=== PATIENT | female | born 1975 | race Caucasian/White ===

== ENCOUNTER 2018-02-01 10:19 | Emergency (ER) | END 2018-02-01 12:19 | disposition home or self-care (01) ==

== ENCOUNTER 2018-05-29 09:17 | Emergency (ER) | END 2018-05-29 10:10 | disposition home or self-care (01) ==

== ENCOUNTER 2018-09-03 09:03 | Emergency (ER) | payer MEDICAID ==
[~2018-09-03] VITALS: Ht 162.6 cm; Wt 59.0 kg
[~2018-09-03 09:03] MED LIST: ALBU8.5H5 IH; ALBU8.5H5 INH; ALBU8.5H8 INH; BECL8.7A5 INH; CEPH500C PO; IBUP-1542 PO; KETO120S3 TOP; METH500T PO; PRED20TA PO; TRAM50TA2 PO
[2018-09-03 09:05] VITALS: BP 127/77; PULSE 75; RESP 19; Ht 162.6 cm; Wt 59.0 kg
[2018-09-03] MEDS ORDERED: KETOROLAC 30 MG INJ IM STA (10:14)
[2018-09-03] MEDS ORDERED: CYCLOBENZAPRINE 10 MG TAB PO ONE (10:30)
[2018-09-03] MEDS ORDERED: DEXAMETHASONE 10 MG/ML 1 ML INJ IM ONE (10:30)
[2018-09-03] MEDS ORDERED: HYDROCODONE/APAP (5/325) TAB PO ONE (12:30)
[2018-09-03] MEDS ORDERED: IBUP-1542 PO (12:36)
[2018-09-03] MEDS ORDERED: CYCL10TA7 PO (12:36)
[2018-09-03] MEDS ORDERED: HYDR-4011 PO (12:36)
--- NOTE | 2018-09-03 20:26 | ERD ---
ER Documentation Chief Complaint Chief Complaint shoulder and left arm pain/tingling HPI 43-year-old presents for left shoulder and arm pain and tingling times 4 days. She states that she has had this issue chronically. She has history of spine fusion. States that she took tramadol at home and Motrin without relief. She also took Robaxin at home. She denies any weakness in her left arm and shoulder. Pain is 8 out of 10. Denies chest pain, shortness of breath, no pain, nausea, vomiting. ROS All systems reviewed and are negative except as per history of present illness. Medications Home Meds Active Scripts Ibuprofen* (Motrin*) 600 Mg Tab, 600 MG PO Q6H PRN for PAIN AND OR ELEVATED TEMP, #30 TAB Prov:PATRICK KHANNA DO 09/03/18 Hydrocodone/Acetaminophen ([place] 5-325 Tablet) 1 Each Tablet, 1 TAB PO Q6H PRN for PAIN, #10 TAB Prov:PATRICK KHANNA DO 09/03/18 Cyclobenzaprine Hcl* (Cyclobenzaprine Hcl*) 10 Mg Tablet, 10 MG PO TID PRN for PAIN, #30 TAB Prov:PATRICK KHANNA DO 09/03/18 Albuterol Sulfate* (Proair HFA*) 8.5 Gm Hfa.aer.ad, 2 PUFF INH Q6, #1 INHALER Prov:MICHAEL RIOS PA-C 02/01/18 Ibuprofen* (Motrin*) 600 Mg Tab, 600 MG PO Q6, #30 TAB Prov:MICHAEL RIOS PA-C 02/01/18 Tramadol HCl (Tramadol HCl) 50 Mg Tablet, 50 MG PO Q4 PRN for PAIN, #15 TAB Prov:MICHAEL RIOS PA-C 02/01/18 Ketoconazole* (Ketoconazole*) 2% - 120 Ml Shampoo, 1 APPLIC TOP DAILY, #1 EA WASH HAIR/SCALP AND RINSE OFF for 2 weeks Prov:DYLAN HOLM NP 05/26/16 Methocarbamol* (Robaxin*) 500 Mg Tab, 500 MG PO Q6, #20 TAB Prov:TRACY NIELSEN MD 10/15/15 Tramadol HCl (Tramadol HCl) 50 Mg Tablet, 50 MG PO Q4 PRN for PAIN, #20 TAB Prov:TRACY NIELSEN MD 10/15/15 Prednisone* (Prednisone*) 20 Mg Tab, 40 MG PO DAILY for 5 Days, TAB Prov:MARIMAR SPENCE 09/25/15 Prednisone* (Prednisone*) 20 Mg Tab, 40 MG PO DAILY for 4 Days, TAB Prov:LAUREEN BELLE PA-C 08/22/15 Albuterol Sulfate* (Albuterol Sulfate* HFA) 8.5 Gm Hfa.aer.ad, 1-2 PUFF INH Q4 PRN for SHORTNESS OF BREATH, #1 EA Prov:LAUREEN BELLE PA-C 08/22/15 Cephalexin* (Cephalexin*) 500 Mg Capsule, 500 MG PO TID, #7 CAP Prov:JASON ROSE MD 07/15/15 Albuterol Sulfate* (Albuterol Sulfate* HFA) 8.5 Gm Hfa.aer.ad, 2 PUFF IH Q4H PRN for WHEEZING AND SOB, #1 EA Prov:JASON ROSE MD 07/15/15 Prednisone* (Prednisone*) 20 Mg Tab, 20 MG PO DAILY, #4 TAB Prov:JASON ROSE MD 07/15/15 Reported Medications Beclomethasone Dip* (Qvar 80*) 7.3 Gm Inha, 2 PUFF INH BID, INH 08/19/14 Albuterol Sulfate* (Proair HFA*) 8.5 Gm Hfa.aer.ad, 2 PUFF INH Q4H PRN for WHEEZING AND SOB, INH 08/19/14 Allergies Allergies: Coded Allergies: erythromycin base (Verified Allergy, Mild, 10/15/15) PMhx/Soc History of Surgery: Yes (Back fusion) Anesthesia Reaction: No Hx Neurological Disorder: No Hx Respiratory Disorders: Yes (Asthma) Hx Cardiac Disorders: No Hx Psychiatric Problems: No Hx Miscellaneous Medical Probl: No Hx Alcohol Use: Yes (occasional) Hx Substance Use: No Hx Tobacco Use: Yes Smoking Status: Current every day smoker Physical Exam Vitals Vital Signs Date Temp Pulse Resp B/P (MAP) Pulse Ox O2 O2 Flow FiO2 Time Delivery Rate 09/03/18 97.6 75 19 127/77 100 09:05 (94) Physical Exam Const: No acute distress Neck: Full range of motion. No meningismus. Resp: Clear to auscultation bilaterally Cardio: Regular rate and rhythm, no murmurs, bilateral radial pulses intact Abd: Soft, non tender, non distended. Normal bowel sounds Skin: No petechiae or rashes Back: No midline or flank tenderness Ext: There is tenderness palpation of the left shoulder area, left arm muscle strength 5 out of 5 Neur: Awake and alert, bilateral upper extremity sensation intact Psych: Normal Mood and Affect Results 24 hrs Laboratory Tests Test 09/03/18 10:34 POC Beta HCG, Qualitative NEGATIVE Current Medications Medications Dose Sig/Mariano Start Time Status Last (Trade) Ordered Route PRN Stop Time Admin Dose Reason Admin 10 mg ONCE ONCE 09/03/18 DC 09/03/18 Dexamethasone IM 10:30 10:22 (Decadron) 09/03/18 10:31 Ketorolac 30 mg ONCE STAT 09/03/18 DC 09/03/18 Tromethamine IM 10:14 10:34 (Toradol) 09/03/18 10:16 10 mg ONCE ONCE 09/03/18 DC 09/03/18 Cyclobenzapri PO 10:30 10:22 ne HCl 09/03/18 10:31 (Flexeril) 1 tab ONCE ONCE 09/03/18 DC 09/03/18 Acetaminophen PO 12:30 12:23 / 09/03/18 12:31 Hydrocodone Bitart (L[place]ard (5/325)) Procedures/MDM Medical Decision Making: Differential diagnosis includes but not limited to muscle strain, ligamentous sprain, fracture, dislocation. Patient appeared well on physical exam. Patient is neurovascularly intact. ED course: Patient was given Toradol, Flexeril, Decadron. Initially she still had the numbness and tingling, patient was subsequently given Ledyard with relief of symptoms. Prescription(s): Patient given prescription for Ledyard short course low-dose, Flexeril, Motrin. Patient advised to follow up with PCP in 1-2 days. Patient advised to return to ED for new or worsening symptoms. Patient stable on discharge from the ED. The patient has been prescribed L[place] during this encounter. The patient has been warned about the use of narcotics. The patient should not drive or operate heavy machinery while taking this medication. The patient was also warned about the addictive properties of narcotic medications. Narcan prescription was NOT provided given the following criteria 1. No more than 5 tablets of L[place]ard 10 mg or 10 tablets of L[place]ard 5 mg were prescribed. 2. Concomitant opiate and benzodiazepine prescriptions were not provided. 3. There is no obvious evidence of prior history of opiate abuse or overdose. Disclaimer: Inadvertent spelling and grammatical errors are likely due to EHR/dictation software use and do not reflect on the overall quality of patient care. Also, please note that the electronic time recorded on this note does not necessarily reflect the actual time of the patient encounter. Departure Diagnosis: Primary Impression: Shoulder pain Condition: Fair Patient Instructions: Shoulder Problems Referrals: [facility] YOU HAVE RECEIVED A MEDICAL SCREENING EXAM AND THE RESULTS INDICATE THAT YOU DO NOT HAVE A CONDITION THAT REQUIRES URGENT TREATMENT IN THE EMERGENCY DEPARTMENT. FURTHER EVALUATION AND TREATMENT OF YOUR CONDITION CAN WAIT UNTIL YOU ARE SEEN IN YOUR DOCTORS OFFICE WITHIN THE NEXT 1-2 DAYS. IT IS YOUR RESPONSIBILITY TO M CAROL AN APPOINTMENT FOR FOLOW-UP CARE. IF YOU HAVE A PRIMARY DOCTOR --you should call your primary doctor and schedule an appointment IF YOU DO NOT HAVE A PRIMARY DOCTOR YOU CAN CALL OUR PHYSICIAN REFERRAL HOTLINE AT IF YOU CAN NOT AFFORD TO SEE A PHYSICIAN YOU CAN CHOSE FROM THE FOLLOWING [facility] [address] [facility]. [facility] [address] [facility] [facility] [address] [facility]. [facility] [address] [facility] [facility] [address] [facility] [facility]. [address] Additional Instructions: Call your primary care doctor TOMORROW for an appointment during the next 1-2 days.See the doctor sooner or return here if your condition worsens before your appointment time. PATRICK KHANNA DO Sep 03, 2018 20:26
== END 2018-09-03 12:47 | disposition home or self-care (01) ==
LOC: FTE 09:03
DX: M25.512 Pain in left shoulder (principal); J45.909 Unspecified asthma, uncomplicated; F17.210 Nicotine dependence, cigarettes, uncomplicated
CPT/HCPCS: 81025; 96372; J1100; J1885; Z7502; Z7610

== ENCOUNTER 2018-09-04 11:27 | Emergency (ER) | payer MEDICAID ==
[~2018-09-04] VITALS: Wt 62.0 kg
[~2018-09-04 11:27] MED LIST changes: +CYCL10TA7 PO; +HYDR-4011 PO
[2018-09-04 11:34] VITALS: BP 163/84; PULSE 82; RESP 16
--- NOTE | 2018-09-04 13:08 | ERD ---
ER Documentation Chief Complaint Chief Complaint LEFT ARM NUMBNESS, NECK PAIN, CHRONIC NECK PROBLEM HPI This 43-year-old female presents with pain and numbness in her left arm radiating from her left trapezius down her left hand. She describes area of pain in her index, middle and ring finger. She has no weakness. She has no history of recent injury. She has no fevers, additional symptoms. She has a history of cervical fusion approximately 15 years ago at [facility].. She was seen here yesterday and is not having relief from [place] prescribed. ROS All systems reviewed and are negative except as per history of present illness. Medications Home Meds Active Scripts Ibuprofen* (Motrin*) 600 Mg Tab, 600 MG PO Q6H PRN for PAIN AND OR ELEVATED TEMP, #30 TAB Prov:PATRICK KHANNA DO 09/03/18 Hydrocodone/Acetaminophen ([place] 5-325 Tablet) 1 Each Tablet, 1 TAB PO Q6H PRN for PAIN, #10 TAB Prov:PATRICK KHANNA DO 09/03/18 Cyclobenzaprine Hcl* (Cyclobenzaprine Hcl*) 10 Mg Tablet, 10 MG PO TID PRN for PAIN, #30 TAB Prov:PATRICK KHANNA DO 09/03/18 Albuterol Sulfate* (Proair HFA*) 8.5 Gm Hfa.aer.ad, 2 PUFF INH Q6, #1 INHALER Prov:MICHAEL RIOS PA-C 02/01/18 Ibuprofen* (Motrin*) 600 Mg Tab, 600 MG PO Q6, #30 TAB Prov:MICHAEL RIOS PA-C 02/01/18 Tramadol HCl (Tramadol HCl) 50 Mg Tablet, 50 MG PO Q4 PRN for PAIN, #15 TAB Prov:MICHAEL RIOS PA-C 02/01/18 Ketoconazole* (Ketoconazole*) 2% - 120 Ml Shampoo, 1 APPLIC TOP DAILY, #1 EA WASH HAIR/SCALP AND RINSE OFF for 2 weeks Prov:DYLAN HOLM NP 05/26/16 Methocarbamol* (Robaxin*) 500 Mg Tab, 500 MG PO Q6, #20 TAB Prov:TRACY NIELSEN MD 10/15/15 Tramadol HCl (Tramadol HCl) 50 Mg Tablet, 50 MG PO Q4 PRN for PAIN, #20 TAB Prov:TRACY NIELSEN MD 10/15/15 Prednisone* (Prednisone*) 20 Mg Tab, 40 MG PO DAILY for 5 Days, TAB Prov:MARIMAR SPENCE 09/25/15 Prednisone* (Prednisone*) 20 Mg Tab, 40 MG PO DAILY for 4 Days, TAB Prov:LAUREEN BELLE PA-C 08/22/15 Albuterol Sulfate* (Albuterol Sulfate* HFA) 8.5 Gm Hfa.aer.ad, 1-2 PUFF INH Q4 PRN for SHORTNESS OF BREATH, #1 EA Prov:LAUREEN BELLE PA-C 08/22/15 Cephalexin* (Cephalexin*) 500 Mg Capsule, 500 MG PO TID, #7 CAP Prov:JASON ROSE MD 07/15/15 Albuterol Sulfate* (Albuterol Sulfate* HFA) 8.5 Gm Hfa.aer.ad, 2 PUFF IH Q4H PRN for WHEEZING AND SOB, #1 EA Prov:JASON ROSE MD 07/15/15 Prednisone* (Prednisone*) 20 Mg Tab, 20 MG PO DAILY, #4 TAB Prov:JASON ROSE MD 07/15/15 Reported Medications Beclomethasone Dip* (Qvar 80*) 7.3 Gm Inha, 2 PUFF INH BID, INH 08/19/14 Albuterol Sulfate* (Proair HFA*) 8.5 Gm Hfa.aer.ad, 2 PUFF INH Q4H PRN for WHEEZING AND SOB, INH 08/19/14 Allergies Allergies: Coded Allergies: erythromycin base (Verified Allergy, Mild, 10/15/15) PMhx/Soc History of Surgery: Yes (Back fusion) Anesthesia Reaction: No Hx Neurological Disorder: No Hx Respiratory Disorders: Yes (Asthma) Hx Cardiac Disorders: No Hx Psychiatric Problems: No Hx Miscellaneous Medical Probl: No Hx Alcohol Use: Yes (occasional) Hx Substance Use: No Hx Tobacco Use: Yes (cig ) Smoking Status: Current every day smoker FmHx Family History: No diabetes, No coronary disease, No other Physical Exam Vitals Vital Signs Date Temp Pulse Resp B/P (MAP) Pulse Ox O2 O2 Flow FiO2 Time Delivery Rate 09/04/18 97.6 82 16 163/84 100 11:34 (110) Physical Exam Const: No acute distress Head: Atraumatic Eyes: Normal Conjunctiva ENT: Normal External Ears, Nose and Mouth. Neck: Full range of motion. No meningismus. Tenderness mildly in the cervical paraspinous area and left trapezius and C5-C6 area. No midline tenderness or deformities. Resp: Clear to auscultation bilaterally Cardio: Regular rate and rhythm, no murmurs Abd: Soft, non tender, non distended. Normal bowel sounds Skin: No petechiae or rashes Back: No midline or flank tenderness Ext: No cyanosis, or edema. Pulses 2+ distally. No restricted range of mo tion weakness. Neur: Awake and alert Psych: Normal Mood and Affect Procedures/MDM CT cervical spine shows multilevel mild foraminal narrowing a and C5-C6 and C6- C7 corresponding with location of patient's symptoms. C7-T1 shows no si gnificant abnormalities. Stable fusion at C5-C6. No additional acute findings noted. Results will be given to patient's. Patient was advised on recommendations for evaluation by neurosurgery or orthopedist for further evaluation treatment of what appears to be recurrence of cervical radicular symptoms with a known history. She was advised he may benefit from physical therapy and further evaluation study. She has no signs or symptoms to suggest epidural abscess, significant spinal cord stenosis, additional emergent causes of presenting complaints. Patient is advised to continue medication as prescribed and follow- up with primary care or return to ER for new or worsening symptoms or complications as directed. The patient was stable with no new complaints during the ER course. Clinically, there is no current evidence to suggest meningitis, sepsis, acute abdomen, pneumonia, stroke, acute coronary syndrome, pulmonary embolism, aortic dissection or any other emergent condition appearing to require further evaluation or hospitalization. Patient counseled regarding my diagnostic impression and care plan. Prior to discharge all questions answered. Pt agrees with treatment plan and understands strict return precautions. Pt is instructed to follow up with primary care provider within 24-48 hours. Precautionary instructions provided including instructions to return to the ER if not improving or for any worsening or changing symptoms or concerns. Departure Diagnosis: Primary Impression: Pain of left arm Condition: Stable Patient Instructions: Radiculopathy, Cervical Referrals: [facility] Hours: Mon-Fri 9:00 AM - 5:00 PM Additional Instructions: Pain likely recurrence of disc disease or cervical radicular pain. Recommend see orthopedist or neurosurgery for further evaluation treatment. May benefit from specialty evaluation and physical therapy. May need authorization from primary doctor for specialist visit. TRACY NIELSEN MD Sep 04, 2018 13:08
== END 2018-09-04 13:17 | disposition home or self-care (01) ==
LOC: FTE 11:27
DX: M79.602 Pain in left arm (principal); J45.909 Unspecified asthma, uncomplicated; F17.210 Nicotine dependence, cigarettes, uncomplicated
CPT/HCPCS: 72125; Z7502

== ENCOUNTER 2019-03-19 14:40 | Emergency (ER) | payer MEDICAID, OTHER ==
[~2019-03-19] VITALS: Ht 162.6 cm; Wt 61.4 kg
[2019-03-19 14:43] VITALS: Ht 162.6 cm; Wt 61.4 kg
[2019-03-19] MEDS ORDERED: ALBUTEROL 0.5% (NEB) 2.5 MG/0.5 ML AMP INH STA (15:16)
[2019-03-19] MEDS ORDERED: IPRATROPIUM (NEB) 0.5 MG/2.5 ML AMP INH STA (15:16)
[2019-03-19] MEDS ORDERED: METHYLPREDNISOLONE 125 MG INJ IV STA (15:16)
[2019-03-19] MEDS ORDERED: MONT10TA24 ORAL (15:54)
--- NOTE | 2019-03-19 17:53 | ERD ---
ER Documentation Chief Complaint Chief Complaint COUGH WITH GREEN SPUTUM X 3 WEEKS. ASTHMA WITH INCREASING SOB. HPI Is a 43-year-old female with a past medical history of asthma who is presenting with concerns of an asthma exacerbation. The patient has had 3 to 4 weeks of progressive worsening shortness of breath and wheezing. Over the last 1 to 2 days, the patient has had a new productive cough with green sputum. The patient does not endorse fever or chills, but she does feel generally unwell. She does endorse chest tightness but no chest pain. She denies diaphoresis. She denies lightheadedness or dizziness. She has not had nausea or vomiting. The patient has had no headache or vision changes. The patient does not endorse neck or back pain. The patient denies lightheadedness or dizziness. The patient denies abdominal pain. The patient denies changes to bowel movements or urination. The patient has had no focal deficits. The patient has had no weakness or numbness or tingling to the face or extremities. ROS All systems reviewed and are negative except as per history of present illness. Medications Home Meds Reported Medications Montelukast Sodium* (Montelukast Sodium*) 10 Mg Tablet, 1 TAB ORAL DAILY 03/19/19 Discontinued Reported Medications Beclomethasone Dip* (Qvar 80*) 7.3 Gm Inha, 2 PUFF INH BID, INH 08/19/14 Albuterol Sulfate* (Proair HFA*) 8.5 Gm Hfa.aer.ad, 2 PUFF INH Q4H PRN for WHEEZING AND SOB, INH 08/19/14 Discontinued Scripts Ibuprofen* (Motrin*) 600 Mg Tab, 600 MG PO Q6H PRN for PAIN AND OR ELEVATED TEMP, #30 TAB Prov:PATRICK KHANNA DO 09/03/18 Hydrocodone/Acetaminophen (Union 5-325 Tablet) 1 Each Tablet, 1 TAB PO Q6H PRN for PAIN, #10 TAB Prov:PATRICK KHANNA DO 09/03/18 Cyclobenzaprine Hcl* (Cyclobenzaprine Hcl*) 10 Mg Tablet, 10 MG PO TID PRN for PAIN, #30 TAB Prov:PATRICK KHANNA DO 09/03/18 Albuterol Sulfate* (Proair HFA*) 8.5 Gm Hfa.aer.ad, 2 PUFF INH Q6, #1 INHALER Prov:MICHAEL RIOS PA-C 02/01/18 Ibuprofen* (Motrin*) 600 Mg Tab, 600 MG PO Q6, #30 TAB Prov:MICHAEL RIOSC 02/01/18 Tramadol HCl (Tramadol HCl) 50 Mg Tablet, 50 MG PO Q4 PRN for PAIN, #15 TAB Prov:MICHAEL RIOSC 02/01/18 Ketoconazole* (Ketoconazole*) 2% - 120 Ml Shampoo, 1 APPLIC TOP DAILY, #1 EA WASH HAIR/SCALP AND RINSE OFF for 2 weeks Prov:DYLAN HOLM NP 05/26/16 Methocarbamol* (Robaxin*) 500 Mg Tab, 500 MG PO Q6, #20 TAB Prov:TRACY NIELSEN MD 10/15/15 Tramadol HCl (Tramadol HCl) 50 Mg Tablet, 50 MG PO Q4 PRN for PAIN, #20 TAB Prov:TRACY NIELSEN MD 10/15/15 Prednisone* (Prednisone*) 20 Mg Tab, 40 MG PO DAILY for 5 Days, TAB Prov:MARIMAR SPENCE 09/25/15 Prednisone* (Prednisone*) 20 Mg Tab, 40 MG PO DAILY for 4 Days, TAB Prov:LAUREEN BELLE PA-C 08/22/15 Albuterol Sulfate* (Albuterol Sulfate* HFA) 8.5 Gm Hfa.aer.ad, 1-2 PUFF INH Q4 PRN for SHORTNESS OF BREATH, #1 EA Prov:LAUREEN BELLE PA-C 08/22/15 Cephalexin* (Cephalexin*) 500 Mg Capsule, 500 MG PO TID, #7 CAP Prov:JASON ROSE MD 07/15/15 Albuterol Sulfate* (Albuterol Sulfate* HFA) 8.5 Gm Hfa.aer.ad, 2 PUFF IH Q4H PRN for WHEEZING AND SOB, #1 EA Prov:JASON ROSE MD 07/15/15 Prednisone* (Prednisone*) 20 Mg Tab, 20 MG PO DAILY, #4 TAB Prov:JASON ROSE MD 07/15/15 Allergies Allergies: Coded Allergies: erythromycin base (Verified Allergy, Mild, 10/15/15) PMhx/Soc History of Surgery: Yes (Back fusion) Anesthesia Reaction: No Hx Neurological Disorder: No Hx Respiratory Disorders: Yes (Asthma) Hx Cardiac Disorders: No Hx Psychiatric Problems: No Hx Miscellaneous Medical Probl: No Hx Alcohol Use: Yes (occasional) Hx Substance Use: No Hx Tobacco Use: Yes (cig ) Smoking Status: Current every day smoker FmHx Family History: No diabetes Physical Exam Vitals Vital Signs Date Temp Pulse Resp B/P (MAP) Pulse Ox O2 O2 Flow FiO2 Time Delivery Rate 03/19/19 98.1 94 16 117/76 100 16:06 (90) 03/19/19 88 18 97 Nasal 2.0 15:50 Cannula 03/19/19 Nasal 2.0 15:17 Cannula 03/19/19 98.9 102 26 117/59 91 14:43 (78) Physical Exam Const: No acute distress Head: Atraumatic Eyes: Normal Conjunctiva ENT: Normal External Ears, Nose and Mouth. Neck: Full range of motion. No meningismus. Resp: Diffuse inspiratory and expiratory wheezes. Increased work of breathing. Cardio: Regular rhythm, tachycardia, no murmurs Abd: Soft, non tender, non distended. Normal bowel sounds Skin: No petechiae or rashes Back: No midline or flank tenderness Ext: No cyanosis, or edema Neur: Awake and alert Psych: Normal Mood and Affect Result Diagram: 03/19/19 1531 03/19/19 1531 Results 24 hrs Laboratory Tests Test 03/19/19 15:31 03/19/19 15:41 White Blood Count 14.9 10^3/ul Red Blood Count 4.19 10^6/ul Hemoglobin 12.0 g/dl Hematocrit 35.9 % Mean Corpuscular Volume 85.7 fl Mean Corpuscular Hemoglobin 28.6 pg Mean Corpuscular Hemoglobin Concent 33.4 g/dl Red Cell Distribution Width 12.7 % Platelet Count 216 10^3/UL Mean Platelet Volume 10.4 fl Immature Granulocytes % 0.500 % Neutrophils % 83.0 % Lymphocytes % 6.2 % Monocytes % 9.8 % Eosinophils % 0.2 % Basophils % 0.3 % Nucleated Red Blood Cells % 0.0 /100WBC Immature Granulocytes # 0.080 10^3/ul Neutrophils # 12.3 10^3/ul Lymphocytes # 0.9 10^3/ul Monocytes # 1.5 10^3/ul Eosinophils # 0.0 10^3/ul Basophils # 0.1 10^3/ul Nucleated Red Blood Cells # 0.0 10^3/ul Sodium Level 139 mmol/L Potassium Level 3.3 mmol/L Chloride Level 106 mmol/L Carbon Dioxide Level 22 mmol/L Anion Gap 11 Blood Urea Nitrogen 15 mg/dl Creatinine 1.02 mg/dl Est Glomerular Filtrat Rate mL/min 59 mL/min Glucose Level 105 mg/dl Calcium Level 9.2 mg/dl Troponin I < 0.012 ng/ml Lactic Acid Level 1.5 mmol/L Current Medications Medications Dose Sig/Mariano Start Time Status Last (Trade) Ordered Route PRN Stop Time Admin Dose Reason Admin Ipratropium 1.5 mg ONCE STAT 03/19/19 DC 03/19/19 [place] INH 15:16 15:47 (Atrovent 03/19/19 15:19 0.02% (Neb)) Albuterol 15 mg ONCE STAT 03/19/19 DC 03/19/19 (Proventil INH 15:16 15:47 0.5% (Neb)) 03/19/19 15:19 125 mg ONCE STAT 03/19/19 DC 03/19/19 Methylprednis IV 15:16 15:42 olone Sodium 03/19/19 15:19 Succinate (Solu-Medrol) Procedures/MDM MDM The patient's presentation warrants further investigation. Previous medical records, if available, were reviewed. LABS The patient's laboratory testing was obtained and reviewed. No emergent treatment was required unless described below. CBC: Leukocytosis with shift, concerning for a possible infection. No E/o anemia or thrombocytopenia Chemistry: No E/o severe acidosis or alkalosis or renal failure or diabetic ketoacidosis. Mild hypokalemia, likely from the albuterol treatment, not emergent. Lactate: No E/o severe sepsis EKG EKG read by me: Rate/Rhythm: Regular rate and rhythm at a rate of 83 bpm Intervals: Normal [place]: Normal Impression: No evidence of acute ischemia or arrhythmia IMAGING Imaging and Radiology interpretation reviewed. CXR FINDINGS: Support Hardware: None Cardiovascular: The cardiovascular silhouette appears unremarkable. Lung Baker: The lung baker and pleural spaces are clear. Pleural Spaces: No pneumothorax or pleural effusion is identified. Osseous Structures: Fixation hardware again projects to the inferior cervical spine. Soft Tissues: Unremarkable IMPRESSION: 1. Unremarkable portable chest without evidence of active cardiopulmonary disease. 2. Fixation hardware again projects to the inferior cervical spine. Electronically viewed and signed by Physician Heidi on 03/19/2019 16:14 TREATMENT/DISPOSITION The patient presents for increased wheezing in addition to a new productive cough of green sputum. The patient does have a mild leukocytosis. The patient was also tachycardic and tachypneic in the waiting room. This does meet criteria for a systemic inflammatory response syndrome. That said, the patient's lactic acid is normal. The patient is afebrile. I do not see evidence of endorgan damage. The patient does not appear systemically ill. Why do feel that the patient may benefit from an outpatient antibiotic regimen, I have low suspicion for sepsis, and I do not feel the patient requires a full septic work-up. The patient was treated with nebulized albuterol and ipratropium in addition to Solu-Medrol. The patient reports feeling better, though she continues to have significant wheezing. Given that the patient's symptoms have only mildly improved, I did offer admission to the patient. The risks and benefits of admission were discussed with the patient. Shared decision-making was enacted, and the patient did not want to be admitted to the hospital. She preferred an outpatient antibiotic regimen in addition to oral steroids over the next several days. She will follow-up with her primary care physician and will return to the emergency department for worsening or recurrent symptoms. The patient's chest xray does not reveal pneumonia or pneumothorax or pleural effusions or pulmonary edema. The patient does not have a widened mediastinum and does not have signs or symptoms concerning for thoracic aortic aneurysm or dissection. The patient does not have pneumomediastinum or signs concerning for esophageal tear or rupture. The patient has no clinical or radiographic signs of pericardial effusion or tamponade. The patient does not have pneumoperitoneum and I have decreased suspicion of viscus perforation as possible referred pain. The patient does not have a history of heart failure and I have low suspicion for this. The patient is not hypoxic. The patient is not endorse pleuritic pain. The patient is not on hormonal therapy. The patient has no history of clotting or bleeding disorders. The patient has no calf tenderness. The patient has had no hemoptysis. I have decreased suspicion for PE. The patient's troponin and EKG are reassuring. I have low suspicion for acute coronary syndrome. DISCHARGE Upon reevaluation of the patient, symptoms have improved. No emergent diagnoses were identified. At this time, I feel that the patient stable for discharge. The patient was instructed to follow-up with a primary care physician in 1-3 days. The patient will be given strict precautions with which to return to the emergency department. Prescriptions: Prednisone, azithromycin. The patient already has albuterol at home. DISCLAIMER Inadvertent spelling and grammatical errors are likely due to EHR/dictation so ftware use and do not reflect on the overall quality of patient care. Note that the electronic time recorded on this note does not necessarily reflect the actual time of the patient encounter. Departure Diagnosis: Primary Impression: Asthma exacerbation Asthma severity: moderate Asthma persistence: unspecified Qualified Codes: J45.901 - Unspecified asthma with (acute) exacerbation Additional Impressions: Shortness of breath Wheezing Tachycardia Tachypnea Leukocytosis Leukocytosis type: unspecified Qualified Codes: D72.829 - Elevated white blood cell count, unspecified Hypokalemia Condition: Stable Patient Instructions: Bronchitis With Wheezing (Adult), Asthma Additional Instructions: Thank you for for coming to [facility] for your care today. Please ask your nurse or provider if you have questions about your care today and do not leave until all your questions have been answered. Please use any medications given as directed and follow-up with your doctor (or the doctor you were referred to) in the next 1-3 days. If you do not have a primary care doctor you may follow up at the [facility] or [facility] (listed below). You may also use motrin and tylenol as needed for fever and/or pain unless instructed otherwise by your provider or nurse. Indications for more urgent follow-up have been discussed, but you may return to the Emergency Department at ANY time for any worrisome or worsening symptoms. If you have abdominal pain, please know that no test or exam you received is pe rfect and you should follow up within 8 hours for continued pain. If you had any imaging studies today, such as an X-Ray or CT Scan, these studies will be reviewed later by a radiologist. You will be called if there are important findings that were not identified today, so make sure the contact inf ormation you provided at registration is correct. If you received any narcotic pain control medicine today, such as Vicodin, Morphine or Dilaudid, your coordination and judgment may be affected for a number of hours. Please do not drive or operate heavy machinery, and you may want someone to assist you at home. If you were given a prescription for narcotic medication, be aware that it is very addictive- use sparingly and only if necessary. PLEASE SEEK FURTHER EVALUATION AND MANAGEMENT AT YOUR DOCTORS OFFICE WITHIN THE NEXT 1-3 DAYS. IT IS YOUR RESPONSIBILITY TO MAKE AN APPOINTMENT FOR FOLOW-UP CARE. IF YOU HAVE A PRIMARY DOCTOR, PLEASE CALL THEIR OFFICE TO SCHEDULE AN APPOINTMENT FOR FOLLOW UP. IF YOU DO NOT HAVE A PRIMARY DOCTOR YOU CAN CALL OUR PHYSICIAN REFERRAL HOTLINE AT IF YOU CAN NOT AFFORD TO SEE A PHYSICIAN YOU CAN CHOSE FROM THE FOLLOWING [facility] CLINICS: [facility] [address] [facility]. [facility] [address] [facility] [facility] [address] [facility] [address] [facility] [facility] [address] [facility]. [facility]. [address] LUL LINDSEY MD Mar 19, 2019 17:53
[2019-03-19] MEDS ORDERED: PRED20TA PO (17:54)
[2019-03-19] MEDS ORDERED: LEVO750T25 PO (17:54)
[2019-03-19 18:08] VITALS: BP 114/69; PULSE 91; RESP 18
== END 2019-03-19 18:11 | disposition home or self-care (01) ==
LOC: E/R 14:40
DX: J45.901 Unspecified asthma with (acute) exacerbation (principal); R00.0 Tachycardia, unspecified; R06.82 Tachypnea, not elsewhere classified; D72.829 Elevated white blood cell count, unspecified; E87.6 Hypokalemia; F17.210 Nicotine dependence, cigarettes, uncomplicated
CPT/HCPCS: 36415; 71045; 80048; 83605; 84484; 85025; 93005; 94644; 96374; J2930; Z7502; Z7610